=== PATIENT | male | born 2005 | race African-American/Black ===

== ENCOUNTER 2024-01-16 12:55 | Emergency (ER) | payer OTHER, SELFPAY ==
[2024-01-16 13:01] VITALS: BP 147/81; PULSE 77; RESP 16; TEMP 37.3; O2SAT 99
--- NOTE | 2024-01-16 13:07 | ED.HEATRA ---
HPI - Head Injury General Chief complaint: Fall Stated complaint: fell at work, hit head Time Seen by Provider: 01/16/24 13:07 Source: patient Mode of arrival: ambulatory Limitations: no limitations History of Present Illness HPI Narrative: Orestes is a 18-year-old male patient presenting to the in clinic today with complaints of falling at while on lunch at work around 10 30 this morning and hitting the left side of his head. States this happened in the bathroom at [facility] in [place], [place]. Does not know if he lost consciousness. States that when he woke up he was seeing stars. Has vomited x2. Complains of headache 02/18 and has photosensitivity with nausea. Denies any other injuries at this time. Took a Ly[employer] to the clinic today for evaluation. Related Data Home Medications Medication Instructions Recorded Confirmed No Home Medications 01/16/24 01/16/24 Allergies Allergy/AdvReac Type Severity Reaction Status Date / Time No Known Allergies Allergy Verified 01/16/24 13:12 Review of Systems Review of Systems: Pertinent positives per HPI. Patient denies any fever, chills, rash, visual changes, cough, runny nose, sore throat, shortness of breath, chest pain, palpitations, diarrhea, constipation, abdominal pain, or any urinary issues. PMFSH Comments At the time of my signature, I reviewed and agree with the nursing past medical, surgical, social, and family history. There is no relevant family history pertinent to the patient complaint. Exam Narrative: General: Well-developed, well nourished, in no apparent distress Head: Normocephalic, atraumatic, tender to palpation over the left temporal/parietal lobe Eyes: Pupils equally round and reactive to light bilaterally, EOM intact, sclera and conjunctive clear, no discharge, lids normal Ears: TMs intact and clear, ear canals clear, no drainage, grossly hearing normal. Nose: Nares patent, no discharge, no inflammation, no sinus tenderness. Mouth: Oropharynx without lesions or masses, good dentition, MMM. Tongue midline, even rise and fall of uvula Neck: Supple, trachea midline, no enlargement of anterior or posterior cervical nodes, no thyroid masses or goiter palpable. Cardio: Regular rate and rhythm, s1 and s2 normal, no murmur appreciated. Resp: Clear to auscultation bilaterally anteriorly and posteriorly, no rhonchi, rales, wheezing or rubs Musculoskeletal: No deformity, non-tender to palpation, grossly normal range of motion, muscle strength strong and equal, peripheral pulse strong, no edema, no cyanosis, cautious gait when moving to the stretcher Neuro: Alert and oriented x4 with normal speech, no focal deficits, cranial nerves I through XII intact, muscle strength 4 out of 5, sensation intact bilaterally. Course Course Emergency Course: Portions of this record may have been created with voice recognition software. Level of Care: Express Care Visit Vital Signs Vital signs: Vital Signs Temperature 37.3 C 01/16/24 13:01 Pulse Rate 77 01/16/24 13:01 Respiratory Rate 16 01/16/24 13:01 Blood Pressure 147/81 H 01/16/24 13:01 Pulse Oximetry 99 01/16/24 13:01 Oxygen Delivery Room Air 01/16/24 13:01 Temperature 37.3 C 01/16/24 13:01 Pulse Rate 77 01/16/24 13:01 Respiratory Rate 16 01/16/24 13:01 Blood Pressure 147/81 H 01/16/24 13:01 Pulse Oximetry 99 01/16/24 13:01 Oxygen Delivery Room Air 01/16/24 13:01 Vital signs reviewed Transfer Transfered to: [facility]: [facility] Transfer rationale: Closed head injury- unknown LOC, N/V, ESPINAL-02/18, photosensitivity, dizziness Accepting physician: Dr. Stark Transfer comments: Via [facility] MDM - Head Injury MDM Narrative Medical decision making narrative: At the time of visit patient is resting comfortably on the exam table. Patient appears to be nontoxic. Plan: I suspect patient has closed head injury with unknown LOC. he has vomited twice an
== END 2024-01-16 13:08 | disposition short-term general hospital (02) ==
PROVIDERS: Emergency Provider Nurse Practitioner Family
DX: S09.90XA Unspecified injury of head, initial encounter (principal); W19.XXXA Unspecified fall, initial encounter; Y99.0 Civilian activity done for income or pay
CPT/HCPCS: 99215; G0463

== ENCOUNTER 2024-01-16 13:23 | Emergency (ER) | payer OTHER, SELFPAY ==
--- NOTE | ~2024-01-16 | CT_ITS ---
Non-contrast Head CT History: Headache Technique: Axial non-contrast imaging of the brain was performed. Dose reduction technique was used on this scan by utilizing automated exposure control and iterative reconstruction technique. The dose -length product (DLP) was 681.00 mGy-cm. Findings: There is no evidence of intracranial hemorrhage, mass lesion, or acute infarct. Brain par enchyma appears normal. The ventricles and subarachnoid spaces are normal in size. The calvarium ap pears normal. The visualized paranasal sinuses and mastoid air cells are clear. Impression: No significant abnormality seen. Reviewed, dictated and finalized at location . Impression: No significant abnormality seen.
[2024-01-16 13:34] VITALS: BP 130/64; PULSE 76; RESP 16; TEMP 36.8; O2SAT 100
--- NOTE | 2024-01-16 14:21 | PC.NURSE ---
Pt states he slipped on water on the bathroom floor and hit his head on the floor. No LOC, no blood thinners, no neck pain. C/o ESPINAL, and L knee pain. Denies N/V currently. reports only one episode of vomiting immediately after getting up.
--- NOTE | 2024-01-16 14:23 | PC.NURSE ---
Ice pack provided
--- NOTE | 2024-01-16 15:19 | ED.HEATRA ---
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 He is right-hand dominant. Does not know if he lost consciousness although he stated that he saw stars and has not a persistent headache is 10 10 severity. He has been feeling dizzy and nauseated had 2 episodes of emesis. Headache is associated with photophobia phonophobia. He states his nausea is improved but is headache still persists. Patient was initially seen at urgent care but there concerns thus he was advised to come to the emergency depart. Related Data Allergies Allergy/AdvReac Type Severity Reaction Status Date / Time No Known Allergies Allergy Verified 01/16/24 13:12 [facility] Social History Social History Occupation/Education: occupation Additional occupation/education comments: antique collector Exam Narrative: GENERAL: Well-appearing, well-nourished, and in no acute distress. HEAD: Normocephalic, atraumatic. EYES: Non injected, non icteric. PERRL. No APD. ENT: Nares clear, no rhinorrhea or epistaxis. NECK: Supple. CHEST: Speaking in full sentences. No respiratory distress. HEART: Regular rate and rhythm. . ABDOMEN: Soft, nondistended. EXTREMITIES: Normal range of motion. No lower extremity edema. SKIN: Warm, dry, no rash. NEURO: No focal deficits. Alert and oriented x3. Sensation intact to gross touch in bilateral upper and lower extremities. speaks clearly without aphasia or dysarthria. No abnormal movements appreciated. Photophobia as patient is resting comfortably in dark room. PSYCH: Normal mood and affect. Course Vital Signs Vital signs: Vital Signs Temperature 98.2 F 01/16/24 13:34 Pulse Rate 76 01/16/24 13:34 Respiratory Rate 16 01/16/24 13:34 Blood Pressure 130/64 01/16/24 13:34 Pulse Oximetry 100 01/16/24 13:34 Oxygen Delivery Room Air 01/16/24 13:34 Temperature 98.2 F 01/16/24 13:34 Pulse Rate 76 01/16/24 13:34 Respiratory Rate 16 01/16/24 13:34 Blood Pressure 130/64 01/16/24 13:34 Pulse Oximetry 100 01/16/24 13:34 Oxygen Delivery Room Air 01/16/24 13:34 MDM - Head Injury MDM Narrative Medical decision making narrative: patient presents after accidentally fell striking the left side of head on floor. initially had nausea although this has improved. He has a persistent 10 / 10 headache and 2 episodes of emesis. In the emergency department he is afebrile with vital signs within normal limits. Given emesis, no longer low risk by [facility] head [facility] rule and thus will proceed with CT imaging. this is negative for acute process. Patient is given analgesic medication. I do believe patient sustained a concussion we discussed this. patient otherwise stable for discharge and he is provided a work note. Differential Diagnosis Differential diagnosis: Likely concussion without loss of consciousness, epidural hematoma, closed head injury, subarachnoid hematoma, postconcussion syndrome, subdural hematoma and concussion with loss of consciousness Imaging Data Radiologist's impression: Impressions Head CT 01/16/24 14:40 Impression: No significant abnormality seen. Discharge Plan Discharge Clinical Impression: CHI (closed head injury), Post-concussion headache Patient Disposition: Home, Self-Care Condition: Stable Instructions: Antibiotic Form, Concussion (ED), Head Injury (ED), Post Concussion Syndrome (ED) Additional Instructions: As we discussed, no evidence of bleeding in/on your brain. You likely suffered a concussion and it is not unusual to have symptoms of a headache and some nausea or vomiting
[2024-01-16] MEDS: ACETAMINOPHEN 500 MG TABLET 1000 MG PO (16:02)
[2024-01-16] MEDS: KETOROLAC 30 MG/ML VIAL (*BKC) 15 MG IM (16:02)
== END 2024-01-16 16:06 | disposition home or self-care (01) ==
PROVIDERS: Emergency Provider Student in an Organized Health Care Education/Training Program
DX: S09.90XA Unspecified injury of head, initial encounter (principal); G44.309 Post-traumatic headache, unspecified, not intractable; F07.81 Postconcussional syndrome; W18.30XA Fall on same level, unspecified, initial encounter
CPT/HCPCS: 70450; 96372; 99284; A9270; J1885